=== PATIENT | female | born 1950 | race Caucasian/White ===

== ENCOUNTER 2020-01-05 04:51 | Outpatient (REF) | payer MEDICARE, SELFPAY ==
[2020-01-05 10:41] LABS: Prothrombin Time 35.9 SEC (10.8-13.0)
== END 2020-01-05 04:52 | disposition home or self-care (01) ==
LOC: HO.LHD 04:51
PROVIDERS: Visit Provider Internal Medicine
DX: I26.99 Other pulmonary embolism without acute cor pulmonale (principal)
CPT/HCPCS: 36415; 85610

== ENCOUNTER 2020-01-19 | Outpatient (REF) | payer MEDICARE, SELFPAY ==
[2020-01-19 10:51] LABS: INTERNATIONAL NORM RATIO 2.6 (0.9-1.1); Prothrombin Time 31.7 SEC (10.8-13.0)
== END 2020-01-19 00:01 | disposition home or self-care (01) ==
LOC: HO.LHD
PROVIDERS: Visit Provider Internal Medicine
DX: I26.99 Other pulmonary embolism without acute cor pulmonale (principal)
CPT/HCPCS: 36415; 85610

== ENCOUNTER 2020-02-08 05:25 | Outpatient (REF) | payer MEDICARE, SELFPAY ==
[2020-02-08 10:35] LABS: MANUAL DIFF FLAG NO
[2020-02-08 10:40] LABS: Basophils Percent Auto 0.4 % (0-2); Eosinophils Percent Auto 0.6 % (0-4); Hematocrit 43.8 % (37-47); Hemoglobin 14.3 g/dl (12.0-16.0); Imm Gran Abs Auto 0.06 X10*3/uL (0.00-0.03); Imm Gran Pct Auto 0.9 % (0.0-0.4); Lymphocytes Absolute Auto 0.8 X10*3/uL (1.2-4.9); Lymphocytes Percent Auto 11.3 % (20-40); Mean Corpuscular HGB Conc 32.6 g/dl (31.0-35.0); Mean Corpuscular Hemoglobin 31.4 pg (27.0-33.0); Mean Corpuscular Volume 96.1 fL (80-98); Mean Platelet Volume 9.7 fL (9.4-12.3); Monocytes Absolute Auto 0.4 X10*3/uL (0.1-1.2); Monocytes Percent Auto 5.7 % (2-11); Neutrophils Absolute Auto 5.6 X10*3/uL (2.0-8.3); Neutrophils Percent Auto 81.1 % (45-73); Platelet Count 279 X10*3/uL (160-400); Red Blood Count 4.56 X10*6/uL (4.20-5.50); Red Cell Distribution Width 13.8 % (11.0-16.0); White Blood Count 6.9 X10*3/uL (4.8-10.8)
[2020-02-08 10:48] LABS: INTERNATIONAL NORM RATIO 2.1 (0.9-1.1); Prothrombin Time 25.1 SEC (10.8-13.0)
[2020-02-08 11:13] LABS: Alanine Aminotransferase 19 U/L (0-31); Alkaline Phosphatase 57 U/L (39-117); Anion Gap 14 (12-20); Aspartate Amino Transferase 18 U/L (5-31); Bilirubin Total 0.5 mg/dL (0.0-1.0); Blood Urea Nitrogen 17 mg/dL (9-16); Calcium 8.9 mg/dL (8.4-10.2); Carbon Dioxide 30 mmol/L (22-29); Chloride 102 mmol/L (96-108); Estimated Glomerular Filt Rate > 60; Glucose Random 108 mg/dL (60-115); Potassium 4.5 mmol/l (3.3-5.1); Sodium 141 mmol/L (135-145); Total Protein 6.2 g/dL (6.5-8.0)
[2020-02-08 13:14] LABS: Thyroid Stimulating Hormone 0.27 uIU/mL (0.32-4.0); Vitamin D 25-OH Total 51.6 ng/mL (>30)
== END 2020-02-08 05:26 | disposition home or self-care (01) ==
LOC: HO.LHD 05:25
PROVIDERS: Visit Provider Internal Medicine
DX: I10 Essential (primary) hypertension (principal); I26.99 Other pulmonary embolism without acute cor pulmonale; R53.81 Other malaise; R53.83 Other fatigue; E55.9 Vitamin D deficiency, unspecified
CPT/HCPCS: 36415; 80053; 82306; 84443; 85025; 85610

== ENCOUNTER 2020-03-05 08:22 | Outpatient (REF) | payer MEDICARE, SELFPAY ==
[2020-03-05 11:04] LABS: INTERNATIONAL NORM RATIO 2.1 (0.9-1.1); Prothrombin Time 24.8 SEC (10.8-13.0)
== END 2020-03-05 08:23 | disposition home or self-care (01) ==
LOC: HO.LHD 08:22
PROVIDERS: Visit Provider Internal Medicine
DX: I26.99 Other pulmonary embolism without acute cor pulmonale (principal); I48.0 Paroxysmal atrial fibrillation
CPT/HCPCS: 36415; 85610

== ENCOUNTER 2020-03-27 08:36 | Outpatient (REF) | payer MEDICARE, SELFPAY ==
[2020-03-27 12:11] LABS: Prothrombin Time 35.5 SEC (10.8-13.0)
== END 2020-03-27 08:37 | disposition home or self-care (01) ==
LOC: HO.LHD 08:36
PROVIDERS: Visit Provider Internal Medicine
DX: I26.99 Other pulmonary embolism without acute cor pulmonale (principal)
CPT/HCPCS: 36415; 85610

== ENCOUNTER 2020-04-10 | Outpatient (REF) | payer MEDICARE, SELFPAY ==
[2020-04-10 10:53] LABS: INTERNATIONAL NORM RATIO 1.7 (0.9-1.1); Prothrombin Time 20.4 SEC (10.8-13.0)
== END 2020-04-10 00:01 | disposition home or self-care (01) ==
LOC: HO.LHD
PROVIDERS: Visit Provider Internal Medicine
DX: I26.99 Other pulmonary embolism without acute cor pulmonale (principal); Z79.01 Long term (current) use of anticoagulants
CPT/HCPCS: 36415; 85610

== ENCOUNTER 2020-04-24 05:08 | Outpatient (REF) | payer MEDICARE, SELFPAY ==
[2020-04-24 10:10] LABS: INTERNATIONAL NORM RATIO 2.2 (0.9-1.1); Prothrombin Time 26.4 SEC (10.8-13.0)
== END 2020-04-24 05:09 | disposition home or self-care (01) ==
LOC: HO.LHD 05:08
PROVIDERS: Visit Provider Internal Medicine
DX: I26.99 Other pulmonary embolism without acute cor pulmonale (principal)
CPT/HCPCS: 36415; 85610

== ENCOUNTER 2020-05-08 06:25 | Outpatient (REF) | payer MEDICARE, SELFPAY ==
[2020-05-08 11:15] LABS: INTERNATIONAL NORM RATIO 3.7 (0.9-1.1); Prothrombin Time 44.8 SEC (10.8-13.0)
== END 2020-05-08 06:26 | disposition home or self-care (01) ==
LOC: HO.LHD 06:25
PROVIDERS: Visit Provider Internal Medicine
DX: I26.99 Other pulmonary embolism without acute cor pulmonale (principal); Z79.01 Long term (current) use of anticoagulants
CPT/HCPCS: 36415; 85610

== ENCOUNTER 2020-05-15 00:50 | Outpatient (REF) | payer MEDICARE, SELFPAY ==
[2020-05-15 10:57] LABS: INTERNATIONAL NORM RATIO 2.2 (0.9-1.1); Prothrombin Time 26.5 SEC (10.8-13.0)
== END 2020-05-15 00:51 | disposition home or self-care (01) ==
LOC: HO.LHD 00:50
PROVIDERS: Visit Provider Internal Medicine
DX: I26.99 Other pulmonary embolism without acute cor pulmonale (principal)
CPT/HCPCS: 36415; 85610

== ENCOUNTER 2020-05-22 03:38 | Outpatient (REF) | payer MEDICARE, SELFPAY ==
[2020-05-22 10:16] LABS: INTERNATIONAL NORM RATIO 2.9 (0.9-1.1); Prothrombin Time 34.4 SEC (10.8-13.0)
== END 2020-05-22 03:39 | disposition home or self-care (01) ==
LOC: HO.LHD 03:38
PROVIDERS: Visit Provider Internal Medicine
DX: I26.99 Other pulmonary embolism without acute cor pulmonale (principal)
CPT/HCPCS: 36415; 85610

== ENCOUNTER 2020-05-29 05:51 | Outpatient (REF) | payer MEDICARE, SELFPAY ==
[2020-05-29 11:21] LABS: Prothrombin Time 36.6 SEC (10.8-13.0)
== END 2020-05-29 05:52 | disposition home or self-care (01) ==
LOC: HO.LHD 05:51
PROVIDERS: Visit Provider Internal Medicine
DX: I26.99 Other pulmonary embolism without acute cor pulmonale (principal)
CPT/HCPCS: 36415; 85610

== ENCOUNTER 2020-06-12 06:57 | Outpatient (REF) | payer MEDICARE, SELFPAY ==
[2020-06-12 11:24] LABS: Prothrombin Time 36.5 SEC (10.8-13.0)
[2020-06-12 11:26] LABS: Anion Gap 16 (12-20); Blood Urea Nitrogen 20 mg/dL (9-16); Calcium 9.3 mg/dL (8.4-10.2); Carbon Dioxide 31 mmol/L (22-29); Chloride 98 mmol/L (96-108); Estimated Glomerular Filt Rate > 60; Glucose Random 118 mg/dL (60-115); Potassium 4.1 mmol/L (3.3-5.1); Sodium 141 mmol/L (135-145)
[2020-06-12 11:51] LABS: Free T4 (Free Thyroxine) 1.41 ng/dL (0.71-1.85); Thyroid Stimulating Hormone 0.18 uIU/mL (0.32-4.0)
== END 2020-06-12 06:58 | disposition home or self-care (01) ==
LOC: HO.LHD 06:57
PROVIDERS: Visit Provider Internal Medicine
DX: I26.99 Other pulmonary embolism without acute cor pulmonale (principal); J44.9 Chronic obstructive pulmonary disease, unspecified; I10 Essential (primary) hypertension; R60.0 Localized edema; R79.89 Other specified abnormal findings of blood chemistry
CPT/HCPCS: 36415; 80048; 84439; 84443; 85610

== ENCOUNTER 2020-06-26 06:59 | Outpatient (REF) | payer MEDICARE, SELFPAY ==
[2020-06-26 12:04] LABS: INTERNATIONAL NORM RATIO 3.6 (0.9-1.1); Prothrombin Time 43.7 SEC (10.8-13.0)
== END 2020-06-26 07:00 | disposition home or self-care (01) ==
LOC: HO.LHD 06:59
PROVIDERS: Visit Provider Internal Medicine
DX: I26.99 Other pulmonary embolism without acute cor pulmonale (principal)
CPT/HCPCS: 36415; 85610

== ENCOUNTER 2020-07-03 04:29 | Outpatient (REF) | payer MEDICARE, SELFPAY ==
[2020-07-03 10:20] LABS: INTERNATIONAL NORM RATIO 3.4 (0.9-1.1); Prothrombin Time 40.5 SEC (10.8-13.0)
== END 2020-07-03 04:30 | disposition home or self-care (01) ==
LOC: HO.LHD 04:29
PROVIDERS: Visit Provider Internal Medicine
DX: I26.99 Other pulmonary embolism without acute cor pulmonale (principal)
CPT/HCPCS: 36415; 85610

== ENCOUNTER 2020-07-10 00:30 | Outpatient (REF) | payer MEDICARE, SELFPAY ==
[2020-07-10 11:36] LABS: Basophils Absolute Auto 0.1 X10*3/uL (0.0-0.2); Basophils Percent Auto 0.5 % (0-2); Eosinophils Percent Auto 0.3 % (0-4); Hematocrit 48.3 % (37-47); Hemoglobin 15.6 g/dl (12.0-16.0); INTERNATIONAL NORM RATIO 2.2 (0.9-1.1); Imm Gran Abs Auto 0.41 X10*3/uL (0.00-0.03); Imm Gran Pct Auto 4.2 % (0.0-0.4); Lymphocytes Absolute Auto 0.6 X10*3/uL (1.2-4.9); Lymphocytes Percent Auto 6.1 % (20-40); MANUAL DIFF FLAG SCAN; Mean Corpuscular HGB Conc 32.3 g/dl (31.0-35.0); Mean Corpuscular Hemoglobin 30.8 pg (27.0-33.0); Mean Corpuscular Volume 95.5 fL (80-98); Mean Platelet Volume 9.2 fL (9.4-12.3); Monocytes Absolute Auto 0.4 X10*3/uL (0.1-1.2); Monocytes Percent Auto 4.2 % (2-11); Neutrophils Absolute Auto 8.3 X10*3/uL (2.0-8.3); Neutrophils Percent Auto 84.7 % (45-73); Platelet Count 295 X10*3/uL (160-400); Prothrombin Time 26.2 SEC (10.8-13.0); Red Blood Count 5.06 X10*6/uL (4.20-5.50); Red Cell Distribution Width 13.5 % (11.0-16.0); SCAN SMEAR FLAG 1; White Blood Count 9.8 X10*3/uL (4.8-10.8)
[2020-07-10 12:02] LABS: Alanine Aminotransferase 23 U/L (0-31); Albumin Level 4.2 g/dL (3.5-5.0); Alkaline Phosphatase 52 U/L (39-117); Anion Gap 20 (12-20); Aspartate Amino Transferase 18 U/L (5-31); Bilirubin Total 0.6 mg/dL (0.0-1.0); Blood Urea Nitrogen 23 mg/dL (9-16); Calcium 9.5 mg/dL (8.4-10.2); Carbon Dioxide 28 mmol/L (22-29); Chloride 98 mmol/L (96-108); Estimated Glomerular Filt Rate > 60; Glucose Random 159 mg/dL (60-115); Magnesium 1.9 mg/dL (1.6-2.6); Potassium 3.8 mmol/L (3.3-5.1); Sodium 142 mmol/L (135-145); Total Protein 6.5 g/dL (6.5-8.0)
[2020-07-10 13:39] LABS: SLIDE REVIEW VERIFIED
== END 2020-07-10 00:31 | disposition home or self-care (01) ==
LOC: HO.LHD 00:30
PROVIDERS: Visit Provider Internal Medicine
DX: I26.99 Other pulmonary embolism without acute cor pulmonale (principal)
CPT/HCPCS: 36415; 80053; 83735; 85025; 85610

== ENCOUNTER 2020-08-09 00:40 | Outpatient (REF) | payer MEDICARE, SELFPAY ==
[2020-08-09 11:41] LABS: Prothrombin Time 23.8 SEC (10.8-13.0)
[2020-08-09 11:49] LABS: Estimated Average Glucose 128 mg/dL; Hemoglobin A1c % 6.1 %
[2020-08-09 11:58] LABS: Anion Gap 16 (12-20); Blood Urea Nitrogen 24 mg/dL (9-16); Calcium 9.3 mg/dL (8.4-10.2); Carbon Dioxide 31 mmol/L (22-29); Chloride 96 mmol/L (96-108); Estimated Glomerular Filt Rate > 60; Glucose Random 196 mg/dL (60-115); Potassium 3.4 mmol/L (3.3-5.1); Sodium 140 mmol/L (135-145)
[2020-08-09 12:20] LABS: Thyroid Stimulating Hormone 0.06 uIU/mL (0.32-4.0)
== END 2020-08-09 00:41 | disposition home or self-care (01) ==
LOC: HO.LHD 00:40
PROVIDERS: Visit Provider Internal Medicine
DX: I26.99 Other pulmonary embolism without acute cor pulmonale (principal); R60.0 Localized edema; R73.01 Impaired fasting glucose; E05.90 Thyrotoxicosis, unspecified without thyrotoxic crisis or storm
CPT/HCPCS: 36415; 80048; 83036; 84439; 84443; 85610

== ENCOUNTER 2020-10-09 12:47 | Outpatient (RCR) | payer MEDICARE, SELFPAY | END 2021-01-28 15:16 | disposition home or self-care (01) | LOC: HO.WCC 12:47 | PROVIDERS: PCP Internal Medicine; Visit Provider Physician Assistant | DX: I87.332 Chronic venous hypertension (idiopathic) with ulcer and inflammation of left lower extremity; L97.522 Non-pressure chronic ulcer of other part of left foot with fat layer exposed; L97.322 Non-pressure chronic ulcer of left ankle with fat layer exposed; J43.9 Emphysema, unspecified; I87.2 Venous insufficiency (chronic) (peripheral); Z99.81 Dependence on supplemental oxygen; Z86.718 Personal history of other venous thrombosis and embolism; Z87.891 Personal history of nicotine dependence; Z79.52 Long term (current) use of systemic steroids | CPT/HCPCS: 10140; 11042; 97597; 97598 ==

== ENCOUNTER 2020-12-18 12:24 | Outpatient (REF) | payer MEDICARE, SELFPAY ==
--- NOTE | ~2020-12-18 | US_ITS ---
EXAMINATION: COLOR-FLOW DUPLEX IMAGING OF THE BILATERAL LOWER EXTREMITY ARTERIAL SYSTEM. VELOCITY MEASUREMENTS THROUGHOUT THE FEMORAL ARTERIES WITH ANKLE-BRACHIAL PERIPHERAL ARTERIAL TESTING. Interventional Radiologist: Jorge Conley M.D., F.S.I.R., F.A.C.R. CLINICAL INFORMATION: This is a 70-year-old female with a leg wound. Evaluate for peripheral arterial disease and healing prognosis. RIGHT FEMORAL RUNOFF VELOCITIES: The right common femoral artery measures 88 cm/s and triphasic. The right profunda femoral artery is 94 cm/s and is biphasic. Right proximal superficial femoral artery measures 91 cm/s and triphasic. Mid superficial femoral artery is not seen. An occlusion cannot be excluded. Distal right superficial femoral artery is also difficult to visualize. There is a vessel in the anatomic region measures 17 cm/s and is monophasic. Right popliteal velocity measures 30 cm/s and is biphasic. The posterior tibial artery velocity measures 33 cm/s and was monophasic. The right ankle-brachial index is 1.55. LEFT FEMORAL RUNOFF VELOCITIES: The left common femoral artery measures 79 cm/s and triphasic. The left profunda femoral artery is 67 cm/s and is biphasic. Left proximal superficial femoral artery measures 49 cm/s and biphasic. Mid superficial femoral artery is 45 cm/s and biphasic. Distal left superficial femoral artery measures 39 cm/s and is biphasic. Left popliteal velocity measures 29 cm/s and is biphasic. The posterior tibial artery velocity measures 31 cm/s and was monophasic. The left ankle-brachial index is 1.50. US/US XAVI complete IMPRESSION: 1. There are normal, if not elevated, bilateral ankle-brachial indices. 2. However, the waveforms appear depressed bilaterally. 3. In addition, the velocities appear low with biphasic runoff waveforms bilaterally. The mid right superficial femoral artery is not seen and there is very low velocity in the distal right superficial femoral artery. This is a concern for hemodynamically significant stenosis within the right superficial femoral artery.
--- NOTE | ~2020-12-18 | US_ITS ---
EXAMINATION: COLOR-FLOW DUPLEX IMAGING OF THE BILATERAL LOWER EXTREMITY ARTERIAL SYSTEM. VELOCITY MEASUREMENTS THROUGHOUT THE FEMORAL ARTERIES WITH ANKLE-BRACHIAL PERIPHERAL ARTERIAL TESTING. Interventional Radiologist: Jorge Conley M.D., F.S.I.R., F.A.C.R. CLINICAL INFORMATION: This is a 70-year-old female with a leg wound. Evaluate for peripheral arterial disease and healing prognosis. RIGHT FEMORAL RUNOFF VELOCITIES: The right common femoral artery measures 88 cm/s and triphasic. The right profunda femoral artery is 94 cm/s and is biphasic. Right proximal superficial femoral artery measures 91 cm/s and triphasic. Mid superficial femoral artery is not seen. An occlusion cannot be excluded. Distal right superficial femoral artery is also difficult to visualize. There is a vessel in the anatomic region measures 17 cm/s and is monophasic. Right popliteal velocity measures 30 cm/s and is biphasic. The posterior tibial artery velocity measures 33 cm/s and was monophasic. The right ankle-brachial index is 1.55. LEFT FEMORAL RUNOFF VELOCITIES: The left common femoral artery measures 79 cm/s and triphasic. The left profunda femoral artery is 67 cm/s and is biphasic. Left proximal superficial femoral artery measures 49 cm/s and biphasic. Mid superficial femoral artery is 45 cm/s and biphasic. Distal left superficial femoral artery measures 39 cm/s and is biphasic. Left popliteal velocity measures 29 cm/s and is biphasic. The posterior tibial artery velocity measures 31 cm/s and was monophasic. The left ankle-brachial index is 1.50. US/US arterial duplex LE BI IMPRESSION: 1. There are normal, if not elevated, bilateral ankle-brachial indices. 2. However, the waveforms appear depressed bilaterally. 3. In addition, the velocities appear low with biphasic runoff waveforms bilaterally. The mid right superficial femoral artery is not seen and there is very low velocity in the distal right superficial femoral artery. This is a concern for hemodynamically significant stenosis within the right superficial femoral artery.
== END 2020-12-18 12:25 | disposition home or self-care (01) ==
LOC: HO.US 12:24
PROVIDERS: PCP Internal Medicine; Visit Provider Physician Assistant
DX: S90.521D Blister (nonthermal), right ankle, subsequent encounter (principal); I87.2 Venous insufficiency (chronic) (peripheral); J43.9 Emphysema, unspecified
CPT/HCPCS: 93923; 93925